=== PATIENT | female | born 1965 | race Caucasian/White ===

== ENCOUNTER → 2016-10-29 | Outpatient (CLI) | payer BC, OTHER ==
[~2016-10-29] MED LIST: ACET1TAB43 PO; IBUP-1773 PO
--- NOTE | 2016-10-29 19:33 | Diagnostic Imaging Report ---
INDICATION: Irregular menses. FINDINGS: The uterus measures 10.5 x 5.9 x 5.9 cm. No evidence of myometrial masses. The endometrial stripe measures 6 mm. There is concern of possible endometrial polyp along the lower uterine segment measuring approximately 1.5 x 0.7 cm. The ovaries are not demonstrated. No adnexal masses or free fluid demonstrated. IMPRESSION: 1. Concern is raised of possible endometrial polyp in the lower uterine segment measuring approximately 1.5 x 0.7 cm. 2. No evidence of myometrial masses to suggest uterine fibroids. Dictated by: Dictated on workstation # [id number]
--- NOTE | 2016-11-02 19:35 | Diagnostic Imaging Report ---
Bilateral screening mammogram 2D views with tomosynthesis. The current study was also evaluated with a Computer Aided Detection (CAD) system. INDICATION: Screening. No current complaints stated on the questionnaire. COMPARISON: 04/12/14. FINDINGS: The breasts are composed of heterogeneously dense parenchyma which may decrease mammographic sensitivity. Benign-appearing calcifications are seen. Allowing for technique and positional differences, no suspicious change is seen. IMPRESSION: Dense breasts with no definite change. ACR BI-RADS Category 2: Benign findings. Result letter will be mailed to the patient. Note: At least 10% of breast cancer is not imaged by mammography. Dictated by: Dictated on workstation # [id number]
== END ==
LOC: RAD 12:26
PROVIDERS: ATTEND Family Medicine
DX: Z12.31 Encounter for screening mammogram for malignant neoplasm of breast (principal); N92.6 Irregular menstruation, unspecified
CPT/HCPCS: 76830; 76856; 77067

== ENCOUNTER 2016-11-16 09:30 | Outpatient (CLI) | payer BC ==
[~2016-11-16] VITALS: Ht 167.6 cm; Wt 64.4 kg
== END 2016-11-16 09:50 ==
LOC: PREOP 09:30
PROVIDERS: ATTEND Obstetrics & Gynecology
DX: Z01.818 Encounter for other preprocedural examination (principal); N85.00 Endometrial hyperplasia, unspecified; N93.9 Abnormal uterine and vaginal bleeding, unspecified

== ENCOUNTER 2016-11-18 09:35 | Day surgery (SDC) | payer BC, OTHER ==
[~2016-11-18] VITALS: Ht 167.6 cm; Wt 64.4 kg
--- OUTSIDE RECORDS SUMMARY | 2016-11-18 09:42 | XMS REPORT | Continuity of Care Document ---
Author Author [facility] Organization [facility] Address Unknown Phone Unavailable Allergies Medications Problems Date Dx Coded Attending Type Code Diagnosis Diagnosed By 10/28/2016 ALEXANDRE NI MD Ot V76.12 OTH SCREEN MAMMO-MALIGN NEOPLASM OF BASIA 10/28/2016 Ot V76.12 OTH SCREEN MAMMO-MALIGN NEOPLASM OF BAS[place] 10/29/2016 ALEXANDRE NI MD Ot V76.12 OTH SCREEN MAMMO-MALIGN NEOPLASM OF [place] 10/29/2016 Ot V76.12 OTH SCREEN MAMMO-MALIGN NEOPLASM OF [place] 11/04/2016 ALEXANDRE NI MD Ot N92.6 IRREGULAR MENSTRUATION, UNSPECIFIED 11/04/2016 ALEXANDRE NI MD Ot Z12.31 ENCNTR SCREEN MAMMOGRAM FOR MALIGNANT NE Procedures Results Encounters ACCT No. Visit Date/Time Discharge Status Pt. Type Provider Facility Loc./Unit Complaint [id number] 10/29/2016 12:26:00 2016 23:59:59 CLS Outpatient ALEXANDRE NI MD [facility] RAD SCREENING,VAGINAL SPOTTING [id number] 04/13/2013 07:40:00 2013 23:59:59 CLS Outpatient ALEXANDRE NI MD [facility] RAD SCREENING [id number] 04/12/2014 07:25:00 Document Registration
[2016-11-18 10:15] LABS: BASOPHILS % (AUTO) 0 % (0-10); EOSINOPHILS # (AUTO) 0.1 10^3/uL (0.0-0.3); EOSINOPHILS % (AUTO) 2 % (0-10); LYMPHOCYTES # (AUTO) 0.9 X 10^3 (1.0-4.0); LYMPHOCYTES % (AUTO) 29 % (12-44); MEAN CORPUSCULAR HEMOGLOBIN 28 PG (25-34); MEAN CORPUSCULAR HGB CONC 31 G/DL (32-36); MEAN CORPUSCULAR VOLUME 89 FL (80-99); MEAN PLATELET VOLUME 11.6 FL (7.4-10.4); MONOCYTES # (AUTO) 0.3 X 10^3 (0.0-1.0); MONOCYTES % (AUTO) 9 % (0-12); NEUTROPHILS # (AUTO) 1.9 X 10^3 (1.8-7.8); NEUTROPHILS % (AUTO) 59 % (42-75); PLATELET COUNT 200 10^3/uL (130-400); RED BLOOD COUNT 4.17 10^6/uL (4.35-5.85); RED CELL DISTRIBUTION WIDTH 13.5 % (10.0-14.5); WHITE BLOOD COUNT 3.1 10^3/uL (4.3-11.0)
[2016-11-18 10:21] VITALS: BP 113/81
[2016-11-18] MEDS ORDERED: LACTATED RINGERS 1,000 ML IV PRN (10:47)
[2016-11-18] MEDS ORDERED: DEXAMETHASONE 10 MG/ML (DECADRON) 1 ML VIAL ONE (10:49)
[2016-11-18] MEDS ORDERED: LIDOCAINE PF 2% 5 ML (XYLOCAINE) VIAL ONE (10:49)
[2016-11-18] MEDS ORDERED: proPOfol 200 MG/20 ML (DIPRIVAN) VIAL IV ONE (10:49)
[2016-11-18] MEDS ORDERED: ONDANSETRON 4 MG/2 ML (SDV) Z0FRAN ONE (10:49)
[2016-11-18] MEDS ORDERED: fentaNYL INJECTION 100 MCG/2 ML AMP ONE (10:49)
[2016-11-18] MEDS ORDERED: SEVOFLURANE (ULTANE) 15 ML INHAL SOLN ONE ×2 (10:49→12:04)
[2016-11-18] MEDS ORDERED: MIDAZOLAM 2 MG/2 ML (VERSED) VIAL ONE (10:49)
[2016-11-18] MEDS ORDERED: LACTATED RINGERS 1,000 ML IV ONE ×2 (10:49→12:04)
[2016-11-18] MEDS ORDERED: D5 LR IV SOLUTION 1,000 ML IV SCH (11:28)
--- NOTE | 2016-11-18 11:28 | Progress Note-Pre Operative ---
Pre-Operative Progress Note H&P Reviewed The H&P was reviewed, patient examined and no changes noted. Date Seen by Provider: Nov 18, 2016 Time Seen by Provider: 11:15 Date H&P Reviewed: Nov 18, 2016 Time H&P Reviewed: 11:15 Pre-Operative Diagnosis: AUB, thickened endometrium CLAY PAGE DO Nov 18, 2016 11:28 am
[2016-11-18] MEDS ORDERED: ONDANSETRON 4 MG/2 ML (SDV) Z0FRAN IVP PRN ×2 (11:30→12:30)
[2016-11-18] MEDS ORDERED: APAP 300 MG/CODEINE 30 MG (TYLENOL #3) TAB PO PRN (11:30)
[2016-11-18] MEDS ORDERED: KETOROLAC 30 MG/ML VIAL IVP ONE (11:30)
--- NOTE | 2016-11-18 11:30 | Discharge Inst-Women's Service ---
Discharge Inst-Women's Serv Depart Medication/Instructions New, Converted or Re-Newed RX: RX on Chart Consults/Follow Up Additional Follow Up: Yes Orders/Referrals Dr. Page in 3 weeks Activity Activity: Activity as Tolerated Driving Instructions: No Driving for 1 Week NO SMOKING: NO SMOKING Nothing Inside Vagina: No Douching, No [place], No Tampons Diet Discharge Diet: No Restrictions Symptoms to Report to : Bleeding Excessive, Pain Increased, Fever Over 101 Degrees F, Vaginal Bleeding Increase, Questions/Concerns For Any Problems or Questions: Contact Your Physician Skin/Wound Care Bathing Instructions: Shower (x 1 week) CLAY PAGE DO Nov 18, 2016 11:30 am
[2016-11-18] MEDS ORDERED: ACET1TAB43 PO (11:31)
[2016-11-18] MEDS ORDERED: IBUP-1773 PO (11:31)
[2016-11-18] MEDS ORDERED: BUPIVACAINE 0.25% 30 ML (SENSORCAINE) VIAL ONE (11:32)
[2016-11-18] MEDS ORDERED: morphine INJ 10 MG/ML 1ML (SYR OR VIAL) IVP PRN (12:30)
[2016-11-18] MEDS ORDERED: fentaNYL INJECTION 100 MCG/2 ML AMP IVP PRN (12:30)
[2016-11-18] MEDS ORDERED: KETOROLAC 30 MG/ML VIAL ONE (12:31)
[2016-11-18 13:20] VITALS: BP 105/78
[2016-11-18 13:50] VITALS: BP 110/76
[2016-11-18 14:20] VITALS: BP 121/78
[2016-11-18] MEDS ORDERED: IBUPROFEN 600 MG (MOTRIN) TAB PO SCH (18:00)
--- NOTE | 2016-11-18 19:44 | OPERATIVE REPORT ---
DATE OF SERVICE: PREOPERATIVE DIAGNOSIS: 1. Abnormal uterine bleeding. 2. Thickened endometrium. POSTOPERATIVE DIAGNOSES: 1. Abnormal uterine bleeding. 2. Thickened endometrium. 3. Confirmed endometrial polyp. PROCEDURE: Dilatation and curettage with hysteroscopic resection of endometrial polyp. SURGEON: Dr. Leland Romero ANESTHESIA: General endotracheal. ESTIMATED BLOOD LOSS: Minimal. URINE OUTPUT: 50 mL DRAIN: Prior to start of the procedure. FLUIDS: 1 liter lactated ringer solution. FINDINGS: A moderately enlarged endometrial polyp at the uterine fundus, grossly normal appearing bilateral tubal ostia and grossly normal appearing intrauterine cavity. SPECIMEN SENT: Endometrial curettings and endometrial polyp. INDICATIONS FOR PROCEDURE: This patient was a consultation in my office for episodes of abnormal uterine bleeding. She reported absolutely normal menstrual pattern up until the past 3 to 4 months and she had continuous bleeding in the last month to month and a half. She had an ultrasound ordered by her primary care provider which showed a thickened endometrium and with her age and change in bleeding status, we discussed endometrial biopsy versus proceeding with D and C with hysteroscopic guidance in order to find the etiology of her thickened endometrium. She elected to proceed with the D and C with hysteroscopy. Risks of the procedure was discussed with the patient in detail including risks of bleeding, infection, damage to surrounding structures including but not limited to the uterus itself, uterine perforation and risk of postoperative bleeding, risk of possible hysterectomy, risk of blood transfusion, risks from anesthesia and even . After everything was discussed with the patient, consent was obtained in the pre-op area with her present and the patient was taken to the operating room. OPERATIVE REPORT: The patient was taken to the operating room where general anesthesia was found to be adequate. She was placed in dorsal lithotomy position and prepped and draped in normal sterile fashion. She was first examined under anesthesia. The uterus is not enlarged, freely mobile. There is no adnexal fullness or masses appreciated on bimanual examination. The bladder is then drained using straight catheterization. A weighted speculum is inserted in the patient's vagina. A right angled retractor is used to visualize the cervix. It is grasped at the 12 o'clock position using a long Allis clamp. I then performed pericervical block at 3 and 9 o'clock positions using 0.25% Marcaine. Care was taken to aspirate before injecting, 5 mL are used at each injection site. I then gently sounded the uterine cavity and was found to be 8 cm. I then gently dilate the cervix using the Elaina dilators and once it is dilated, I am able to place my hysteroscope within the endometrial cavity. I used normal saline as my visual medium. I am able to visualize the polyp described in my findings below. It is also documented with photo documentation. I then, using the endometrial resection device, I am able to resect and remove the endometrial polyp and uterine fundus. After this is done, there is no active bleeding noted from this area. I then removed the hysteroscope and performed my light curettage of the endometrial cavity and this is sent as an endometrial curetting. The procedure was completed at that point. All instruments were removed from the patient's vagina. The patient tolerated the procedure well and was sent to the recovery area in stable condition. Lap and sponge counts were correct at the end of the procedure. Instrument counts were correct as well. Job ID: [id number] DocumentID: [id number] Dictated Date: 11/18/2016 12:23:21 Retort Cooler Date: 11/18/2016 16:14:45 Dictated By: DO SEFERINO MCMAHAN
== END 2016-11-18 14:20 | disposition home or self-care (01) ==
LOC: SDC 09:35
PROVIDERS: ATTEND Obstetrics & Gynecology
DX: N84.0 Polyp of corpus uteri (principal); N93.9 Abnormal uterine and vaginal bleeding, unspecified
CPT/HCPCS: 36415; 84703; 85025; 86850; 86900; 86901; 87081

== ENCOUNTER 2017-04-12 05:32 | Outpatient (CLI) | payer OTHER ==
[~2017-04-12] VITALS: Ht 167.6 cm; Wt 64.4 kg
== END 2017-04-12 11:09 ==
LOC: PREOP 05:32
PROVIDERS: ATTEND Obstetrics & Gynecology
DX: Z01.818 Encounter for other preprocedural examination (principal); N93.0 Postcoital and contact bleeding

== ENCOUNTER 2017-04-14 08:07 | Day surgery (SDC) | payer BC, OTHER ==
[~2017-04-14] VITALS: Ht 167.6 cm; Wt 64.4 kg
[2017-04-14] MEDS ORDERED: ceFAZolin 1 GM/NS 50 ML IVPB IV ONE ×2 (08:30)
[2017-04-14] MEDS ORDERED: metroNIDAZOLE 500 MG/100 ML IVPB (PRE-MIX) IV ONE (08:30)
[2017-04-14 08:36] LABS: BASOPHILS % (AUTO) 0 % (0-10); EOSINOPHILS # (AUTO) 0.1 10^3/uL (0.0-0.3); EOSINOPHILS % (AUTO) 2 % (0-10); HEMATOCRIT 38 % (35-52); HEMOGLOBIN 11.8 G/DL (11.5-16.0); LYMPHOCYTES # (AUTO) 0.8 X 10^3 (1.0-4.0); LYMPHOCYTES % (AUTO) 29 % (12-44); MEAN CORPUSCULAR HEMOGLOBIN 27 PG (25-34); MEAN CORPUSCULAR HGB CONC 31 G/DL (32-36); MEAN CORPUSCULAR VOLUME 87 FL (80-99); MEAN PLATELET VOLUME 10.9 FL (7.4-10.4); MONOCYTES # (AUTO) 0.2 X 10^3 (0.0-1.0); MONOCYTES % (AUTO) 8 % (0-12); NEUTROPHILS # (AUTO) 1.7 X 10^3 (1.8-7.8); NEUTROPHILS % (AUTO) 61 % (42-75); PLATELET COUNT 207 10^3/uL (130-400); RED BLOOD COUNT 4.42 10^6/uL (4.35-5.85); RED CELL DISTRIBUTION WIDTH 14.7 % (10.0-14.5); WHITE BLOOD COUNT 2.9 10^3/uL (4.3-11.0)
[2017-04-14] MEDS ORDERED: BUPIVACAINE 0.25% 30 ML (SENSORCAINE) VIAL ONE (09:07)
--- NOTE | 2017-04-14 09:14 | Discharge Inst-Women's Service ---
Discharge Inst-Women's Serv Depart Medication/Instructions New, Converted or Re-Newed RX: RX on Chart Consults/Follow Up Additional Follow Up: Yes Orders/Referrals Dr. Romero in 7-10 days and in 8 weeks Activity Activity: Activity as Tolerated Driving Instructions: No Driving for 1 Week NO SMOKING: NO SMOKING Nothing Inside Vagina: No Douching, No [place], No Tampons Diet Discharge Diet: No Restrictions Symptoms to Report to : Bleeding Excessive, Pain Increased, Fever Over 101 Degrees F, Vaginal Bleeding Increase, Questions/Concerns For Any Problems or Questions: Contact Your Physician Skin/Wound Care Infection Signs and Symptoms: Increased Redness, Foul Odor of Wound, Increased Drainage, Skin Itchy or Has a Rash, Increased Swelling, Temperature Above 101 F Operative Area Clean and Dry: Keep Incision Clean/Dry Stitches/Jenifer/Dermabond: Dermabond, Care of Stitches Bathing Instructions: CLAY Lyon DO Apr 14, 2017 9:14 am
[2017-04-14] MEDS ORDERED: CHLORASEPTIC LOZENGE MM PRN (09:15)
[2017-04-14] MEDS ORDERED: ANTACID SUSP 30 ML UDC (MYLANTA) PO PRN (09:15)
[2017-04-14] MEDS ORDERED: ZOLPIDEM 5 MG (AMBIEN) TAB PO PRN (09:15)
[2017-04-14] MEDS ORDERED: DOCUSATE SODIUM 100 MG (COLACE) CAP PO PRN (09:15)
[2017-04-14] MEDS ORDERED: HYDROcodone/APAP 7.5 MG/325 MG (LORTAB, LORCET PLUS) TABLET PO PRN (09:15)
[2017-04-14] MEDS ORDERED: DOCU100C37 PO (09:16)
[2017-04-14] MEDS ORDERED: IBUP-1773 PO (09:16)
[2017-04-14] MEDS ORDERED: SIME80TA16 PO (09:16)
[2017-04-14] MEDS ORDERED: HYDR-34 PO (09:16)
[2017-04-14] MEDS ORDERED: LACTATED RINGERS 1,000 ML IV PRN (09:16)
[2017-04-14] MEDS ORDERED: DEXAMETHASONE 10 MG/ML (DECADRON) 1 ML VIAL ONE (09:17)
[2017-04-14] MEDS ORDERED: SEVOFLURANE (ULTANE) 15 ML INHAL SOLN ONE ×7 (09:17→11:09)
[2017-04-14] MEDS ORDERED: ISOFLURANE (FORANE) 15 ML/15 MIN INHALATION ONE (09:17)
[2017-04-14] MEDS ORDERED: proPOfol 200 MG/20 ML (DIPRIVAN) VIAL IV ONE (09:17)
[2017-04-14] MEDS ORDERED: LIDOCAINE PF 2% 5 ML (XYLOCAINE) VIAL ONE (09:17)
[2017-04-14] MEDS ORDERED: MIDAZOLAM 2 MG/2 ML (VERSED) VIAL ONE (09:18)
[2017-04-14] MEDS ORDERED: fentaNYL INJECTION 100 MCG/2 ML AMP ONE ×2 (09:18→11:09)
[2017-04-14 09:30] VITALS: BP 114/81
[2017-04-14] MEDS ORDERED: metroNIDAZOLE 500MG/100ML IVPB 100 ML IV ONE (09:30)
[2017-04-14] MEDS ORDERED: ceFAZolin INJECTION 1,000 MG in NS (IVPB) 50 ML IV ONE (09:30)
[2017-04-14] MEDS: LACTATED RINGERS 1,000 ML IV SCH ×3 (10:18→19:56)
[2017-04-14] MEDS ORDERED: NEOSTIGMINE (BLOXIVERZ ) 1 MG/1ML 10 ML VIAL ONE (11:08)
[2017-04-14] MEDS ORDERED: GLYCOPYRROLATE 0.2 MG/ML (ROBINUL) 2 ML VIAL ONE (11:08)
[2017-04-14] MEDS ORDERED: morphine INJ 10 MG/ML 1ML (SYR OR VIAL) ONE (11:10)
--- NOTE | 2017-04-14 11:41 | Progress Note-Pre Operative ---
Pre-Operative Progress Note H&P Reviewed The H&P was reviewed, patient examined and no changes noted. Date Seen by Provider: Apr 14, 2017 Time Seen by Provider: 09:15 Date H&P Reviewed: Apr 14, 2017 Time H&P Reviewed: 09:15 Pre-Operative Diagnosis: AUB, Postcoital bleeding CLAY PAGE DO Apr 14, 2017 11:40 am
[2017-04-14] MEDS: morphine INJ 10 MG/ML 1ML (SYR OR VIAL) IVP PRN ×2 (11:42→11:53)
[2017-04-14] MEDS: KETOROLAC 30 MG/ML VIAL IV PRN ×2 (11:43→17:58)
[2017-04-14] MEDS ORDERED: ONDANSETRON 4 MG/2 ML (SDV) Z0FRAN IVP PRN (11:45)
[2017-04-14] MEDS ORDERED: HYDROmorphone (DILAUDID) 2 MG/ML VIAL IVP PRN (11:45)
[2017-04-14 12:28] VITALS: BP 98/64
--- NOTE | 2017-04-14 14:31 | Anesthesia-General Post-Op ---
General Patient Condition Mental Status/LOC: Same as Preop Cardiovascular: Satisfactory Nausea/Vomiting: Absent Respiratory: Satisfactory Pain: Controlled Complications: Absent Post Op Complications Complications None Follow Up Care/Instructions Patient Instructions None needed. Anesthesia/Patient Condition Patient Condition Patient is doing well, no complaints, stable vital signs, no apparent adverse anesthesia problems. No complications reported per nursing. SHASHANK OLSEN CRNA Apr 14, 2017 14:31
[2017-04-14] MEDS: ONDANSETRON 4 MG/2 ML (SDV) Z0FRAN IV PRN ×2 (14:50→17:57)
[2017-04-14 16:00] VITALS: BP 100/65
--- NOTE | 2017-04-14 17:28 | Progress Note-Post Operative ---
Post-Operative Progess Note Surgeon (s)/Air Conditioning Engineer (s) Surgeon CLAY PAGE DO Air Conditioning Engineer: Genie Arteaga Pre-Operative Diagnosis AUB, Postcoital bleeding Post-Operative Diagnosis same Procedure & Operative Findings Date of Procedure 04/14/17 Procedure Performed/Findings EBL: 30 mL UOP: 50 mL Fluids: 1900 mL OPERATIVE REPORT IN DETAIL: Once in the operating room, general anesthesia found to be adequate, placed in dorsal lithotomy position, prepped and draped in normal sterile fashion. A Phillips catheter placed using sterile technique. A weighted speculum was then inserted in the patient's vagina. A right angle retractor is used to visualize the cervix, which was grasped at 12 o'clock position using a single tooth tenaculum. I then placed 0 Vicryl suture through the anterior lip of cervix and used this as my retraction point. The suture was used to secure the cervix and then I am able to sound the uterine cavity depth, it was found to be 8 cm. I then selected an 8 cm Cierra uterine manipulator tip and 3.5 cm colpotomy ring and advanced the uterine manipulator tip into the endometrial cavity and deployed with a balloon. I then advanced the colpotomy ring around the cervix and secured into the vaginal fornix. Once this was in place, excellent bimanual manipulation is noted on bimanual examination. I then performed a change of gloves and took my attention to the abdomen where infraumbilically, I infiltrated this area using 0.25% Marcaine and make an 8 mm incision and directed Veress needle through this incision until intraperitoneal placement was confirmed using a saline drop test. I then proceed with insufflation using CO2 gas and opening pressure of 3 mmHg was noted. I proceeded to maximum pressure of 15 mmHg, at which point I removed the Veress needle and introduced an 8 mm blunt da Phoenix camera trocar. Once this was in place, I am able to confirm intraperitoneal placement using the da Phoenix laparoscope. I then placed the patient in steep Trendelenburg and placed lateral trocars both 8 mm trocars. The skin was infiltrated using 0.25% Marcaine and made an 8 mm incision and directed the trocars under direct visualization of laparoscope. Once these were in place, I am able to see all the anatomy necessary to complete the procedure. I bring the da Phoenix robot and docked in appropriate fashion and placed in the vessel sealer in the left hand and monopolar damaso in the right hand. I performed the following dissection bilaterally. I grasped the uteroovarian ligament, bipolar cauterized and transected using vessel sealer. I then grasped the round ligament, bipolar cauterized this and transected using vessel sealer. I then created a window in the mesosalpinx and take this laterally using the vessel sealer, amputating the fallopian tube from the mesosalpinx. I then proceeded with grasping the broad ligament, bipolar cauterized this and transected using the vessel sealer down to the level of the lower uterine segment, at which point I the anterior and posterior leaflets of the broad ligament. Anterior leaflet was taken around to the anterior vaginal fornix, posterior leaflet was taken around to the posterior vaginal fornix. I then am able to skeletonize the uterine vessels laterally and bipolar cauterized and transected using the vessel sealer. I then performed a colpotomy at 12 o'clock position using monopolar damaso and take this circumferentially around the vaginal fornix, amputating the cervix away from the vagina. The specimen was then removed through the vagina and I closed the vaginal cuff and the lateral vaginal apices using 2-0 Vicryl suture in a [id number] fashion, colposuspending suspending them to the uterosacral ligament. I then closed remainder of the vaginal cuff using 2-0 V-Loc in a running fashion. There was no active bleeding noted from any of my dissection planes. At that point, undocked the da Phoenix robot and proceed with the remainder of the case laparoscopically. I then copiously irrigated the pelvis using normal saline. There was no active bleeding noted from any of my dissection planes. I placed FloSeal hemostatic agent overall my planes of dissection and have the patient taken out of steep Trendelenburg. I then removed the lateral trocars under direct visualization of the laparoscope. The infraumbilical trocar was left in place to release insufflation and introduced 10 mL of 0.5% Marcaine. This trocar was then removed. I then closed the skin using 4-0 Monocryl in interrupted subcuticular stitches. Dermabond was applied to the incisions and Band-Aids were placed over these. Phillips catheter left in place. The patient tolerated the procedure well and sent to recovery in stable condition. Lap and sponge counts were correct at the end of the procedure, instrument counts correct as well. One gram of Ancef and 500 mg of Flagyl were given preoperatively for infection prophylaxis. Anesthesia Type GETA Estimated Blood Loss Estimated blood loss (mL): 30 Specimens/Packing Specimens Removed uterus tubes CLAY PAGE DO Apr 14, 2017 5:28 pm
[2017-04-14] MEDS: SIMETHICONE 80 MG (MYLICON) CHEW PO PRN (17:58)
[2017-04-14 20:00] VITALS: BP 113/76
[2017-04-14] MEDS ORDERED: PROMETHAZINE INJ 25 MG/ML (PHENERGAN) AMP IVP PRN (21:00)
[2017-04-15] VITALS: BP 103/65
[2017-04-15] MEDS ORDERED: IBUPROFEN 600 MG (MOTRIN) TAB PO PRN (02:00)
[2017-04-15 04:00] VITALS: BP 96/55
[2017-04-15 08:05] VITALS: BP 93/56
[2017-04-15] MEDS: SIMETHICONE 80 MG (MYLICON) CHEW PO PRN (08:13)
[2017-04-15 10:15] VITALS: BP 93/56
== END 2017-04-15 10:15 | disposition home or self-care (01) ==
LOC: SDC 08:07 → LDRP 12:25 → SDC 04-15 10:15
PROVIDERS: ATTEND Obstetrics & Gynecology
DX: N93.9 Abnormal uterine and vaginal bleeding, unspecified (principal); N93.0 Postcoital and contact bleeding; N83.8 Other noninflammatory disorders of ovary, fallopian tube and broad ligament
CPT/HCPCS: 36415; 84703; 85025; 86850; 86900; 86901; 87081; 94664